=== PATIENT | female | born 1955 | race Caucasian/White ===

== ENCOUNTER → 2016-06-23 | Outpatient (CLI) | payer BC ==
[~2016-06-23] MED LIST: ALBUAER2 INH; ALLGUNK; AZIT250T PO; MXLUNK; PRED20TA PO
--- NOTE | 2016-06-27 15:57 | PULMONARY FUNCTION TEST ---
INTERPRETATION: This spirometry reveals mild obstruction with no change in airflow with the use of albuterol. Lung volumes are normal. The diffusion capacity when corrected for alveolar volume is slightly increased.
== END | disposition home or self-care (01) ==
LOC: C.RC 13:04
PROVIDERS: ATTEND Nurse Practitioner Family
DX: G47.33 Obstructive sleep apnea (adult) (pediatric) (principal); R05 Cough; T78.49XD Other allergy, subsequent encounter

== ENCOUNTER → 2016-09-27 | Outpatient (CLI) | payer BC ==
[~2016-09-27] VITALS: Ht 175.3 cm; Wt 87.0 kg
[2016-09-27 13:03] VITALS: BP 146/84; PULSE 72; Ht 175.3 cm; Wt 87.0 kg
== END | disposition home or self-care (01) ==
LOC: C.NEUR 12:25
PROVIDERS: ATTEND Internal Medicine Pulmonary Disease
DX: G47.19 Other hypersomnia (principal)

== ENCOUNTER → 2016-10-03 | Outpatient (CLI) | payer BC ==
--- NOTE | 2016-10-04 08:51 | PAP/PSG TECHNICIAN REPORT ---
[facility] Land Classifier Polysomnogram Report Study name: None Report date: 10/04/2016 Study date: 10/03/2016 Referring Physician: Josephine Smith CRNP Name: ROSAURA COLON Interpreting Physician: Cristóbal Álvarez M.D. Date of : 1955 Land Classifier: Teri Perez, PSGT. Sex: Female Age: 61 StudyType: PSG Weight: 191 lbs Height: 61 years, Height 5' 8" Neck Circum: BMI: 29.04 Medications: FEXOFENADINE HCI 180 MG, FLUTICASONE PROPIONATE 50 MCG/ACT, PROAIR HFA 108 MCG, PROTONIX 20MG, [place] WORT XTRA , VIT.D 2000 UNITS. Patient History 61 YR.OLD FEMALE IN ROOM 7, PRESENTS [facility] FOR A TITRATION SLEEP STUDY. PT. HAD A HOME SLEEP STUDY THAT SHOWED MODERATE BRYAN.PT. STATES THAT SHE WAKES GASPING AND HER WAKES HER AND TELLS HER TO BREATHE. Parameters Monitored NPSG: E1-M2, E2-M1, Fp1-M2, Fp2-M1, F3-M2, F4-M2, F4-M1, C3-M2, C4-M2, C4-M1, O1-M2, O2-M2, O2-M1, T3-M2, T4-M1, P3-M2, P4-M1, CHIN1, CHIN2, HR, EKG, Legs, PFLOW, SNOR, FLOW, CFLOW, Tidal Volume, THOR, ABDO, SpO2, PLTH, CPRESS, ETCO2 Wave, ETCO2, pH Sleep Architecture Sleep Stages Time at Lights Off 9:52:06 PM STAGES Time (min.) TST (%) Time at Lights On 5:31:06 AM Wake 165.5 -- Total Recording Time (TRT) 460.50 min. N1 28.0 10 Total Sleep Period (TSP) 425.0 min. N2 197.5 67 Total Sleep Time (TST) 293.5min. N3 7.0 2 Awake Time 167.0 min. REM 61.0 21 Wake after Sleep Onset 140.0 min. Sleep Efficiency (SE) 64 % Sleep Onset Latency (ZAFAR) 25.5 min. Number of Stage 1 Shifts None Awakenings 16 Stage Changes 52 Number of REM periods 2 REM 61.0 21 REM Latency 194.5 min. NREM 232.5 79 Body Position Analysis Supine Right Left Side Prone Vertical Total Sleep Time (min.) 175.8 37.2 190.5 227.74 0.0 0.0 Total Sleep Time (%) 22% 13% 65% 78 0% N/A% Total Sleep Time REM (min.) 0.0 0.0 61.0 None 0.0 0.0 Total Sleep Time NREM (min.) 65.8 37.2 129.5 None 0.0 0.0 Intermittent Wake (min.) 110.1 30.6 24.9 None 0.0 0.0 Total Sleep Period (%) 35% None None None None None Arousals Myoclonus (PLM) * Events Count Index Events Count Index Spontaneous 31 6 Events Awake (PLMW) 0 0.0 Respiratory 6 1.2 Events Asleep w/ Arousal (PLMA) 1 0.2 PLM 1 0 Events Asleep w/o Arousal (PLMS) 13 2.7 Snoring 5 1 Total Asleep 14 2.9 Total 43 9 Total 14 2 Respiratory Analysis * CA OA MA CH H RERA Total Count 0 0 1 0 22 0 23 Index 0.0 0.0 0.2 0 4.5 0 4.7 Mean Duration 0.0 0.0 0.0 0.00 18.5 0.0 17.7 Longest Duration 0.0 0.0 0.0 0.00 0.0 0.0 34.4 Respiratory Event Summary Total Supine ~Supine Right Left Prone REM NREM Apneas Count 1 0 1 0 1 N/A 1 0 Index 0.2 0 0 0.0 0.3 N/A 1 0 Hypopneas (4% Desat) Count 22 19 3 1 2 N/A 0 22 Index 4.5 17.3 1 1.6 0.6 N/A 0.0 5.7 Apneas & All Hypopneas Count 23 19 4 1 3 N/A 1 22 Index 4.7 17 1 2 1 N/A 1.0 5.7 Respiratory Events (Machining Manager+All Hyp+RERA) Count 23 19 4 1 3 N/A 1 22 Index 4.7 17 1 1.6 0.9 N/A 1.0 5.7 Respiratory Related Arousal Count 6 19 2 1 1 N/A 0 6 Index 1.2 4 1 2 0 N/A 0 2 Snoring Analysis Supine Right Left Prone REM NREM Total Snore duration 12.7 min Snores count 59 395 17 N/A 5 466 471 Snore mean duration 1.6 Sec Snores index 54 636 5 N/A 4.9 120.3 96.3 TST with snoring (%) 4.3% Desaturation Event Summary: Minimum %SpO2 Event Count Mean/Min/Max Duration(sec.) Desaturation Index % Time In Bed > 90 25 28.8 / 13.0 / 58.8 3.5 95.4 86 - 90 8 22.2 / 10.0 / 40.3 23.7 4.5 81 - 85 0 N/A 0.0 0.2 76 - 80 0 N/A 0.0 0.0 71 - 75 0 N/A 0.0 0.0 66 - 70 0 N/A 0.0 0.0 61 - 65 0 N/A 0.0 0.0 56 - 60 0 N/A 0.0 0.0 51 - 55 0 N/A 0.0 0.0 < 50 0 N/A 0.0 0.0 Total REM NREM Awake <50% 0.0 min. 0.0 min. 0.0 min. 0.0 min. 51 - 60% 0.0 min. 0.0 min. 0.0 min. 0.0 min. 61 - 70% 0.0 min. 0.0 min. 0.0 min. 0.0 min. 71 - 80% 0.0 min. 0.0 min. 0.0 min. 0.0 min. 81 - 90% 20.9 min. 0.0 min. 15.9 min. 5.0 min. 91 - 100% 429.4 min. 61.0 min. 216.5 min. 151.9 min. Average 94 95 94 94 Minimum SpO2 83 93 83 85 Desaturation Event Index 4.1 0.0 8.0 0.4 # Desat. Events below 89% 12 N/A 12 0 Time(%) with Saturation below 89% 2.3 0.0 2.1 0.2 Time(min.) with Saturation below 89% 10.6 0.0 9.5 1.0 Time (mins) REM (mins) NREM (mins) % of TST SpO2 Below 90% 19 N/A N19 4.2 SpO2 Below 88% 4 0 0 2 Heart Rate Analysis Min (bpm) Max (bpm) Average (bpm) Awake 53 102 66 NREM 52 97 58 REM 53 87 61 Overall 52 97 59 Supplemental O2 Values Minimum O2 level: None Value Start Time End Time Land Classifier Comments PAP Study: slept in the right, left,and supine positions. No cardiac arrhythmia or PLM's noted. No bruxism noted. CPAP was initiated at +4 CMH2O and up-titrated to an optimal level of +10 CMH2O, which nearly eliminated all respiratory events and snoring. A Medium Res Med F10 was used during titration Ms. Colon awoke to use the restroom one time during the night. Ms. Colon stated, it was rough at first. The final report will be interpreted and signed by a sleep physician. The completed physician report will then be placed in the patient medical record. Therapy Event: Therapy (cm H20) 4 6 8 10 Total Time at Pressure (min.) 26.1 160.3 127.8 144.5 TST at Pressure (min.) 0.8 66.7 119.5 106.5 # Periods 1 1 1 1 Sleep Onset (min.) 25.3 0.0 5.9 0.0 REM Onset (min.) N/A N/A 33.4 29.0 Sleep Efficiency % 3 41 93 73 Wakefulness (%) 96.8 58.4 6.5 26.3 Wakefulness (min.) 25.3 93.6 8.4 38.0 NREM 1 (%) 3.2 10.7 3.9 3.5 NREM 1 (min.) 0.8 17.2 5.0 5.0 NREM 2 (%) 0.0 30.9 65.7 44.3 NREM 2 (min.) 0.0 49.5 84.0 64.0 NREM 3 (%) 0.0 0.0 5.5 0.0 NREM 3 (min.) 0.0 0.0 7.0 0.0 REM (%) 0.0 0.0 18.4 25.9 REM (min.) 0.0 0.0 23.5 37.5 # Arousals 0 15 19 9 Arousal Index 0.0 13.5 9.5 5.1 # Snore 0 433 33 5 Snore Index 0.0 389.7 16.6 2.8 AHI 72.2 9.0 5.5 0.6 AHI Supine 72.2 16.8 19.6 7.3 AHI Non-Supine N/A 1.7 1.9 0.0 NREM AHI 72.2 9.0 6.3 0.9 REM AHI N/A N/A 2.6 0.0 RDI 72.2 9.0 5.5 0.6 # Obstructive 0 0 0 0 # Central Ap 0 0 0 0 # Mixed 0 0 1 0 # Hypopneas 1 10 10 1 RERAS 0 0 0 0 Total Respiratory Events 1 10 11 1 Time Below SpO2 89.00% (min.) 0.2 9.2 0.2 0.0 Mean NREM SpO2 (%) 90 92 94 95 Mean REM SpO2 (%) N/A N/A 94 96 Mean Sleep SpO2 (%) 90 92 94 95 Min NREM SpO2 (%) 87 83 88 92 Min REM SpO2 (%) N/A N/A 93 93 Position Supine (min.) 0.8 32.2 24.5 8.2 Position Non-supine (min.) 0.0 34.4 95.0 98.4 LM Index Sleep 0.0 3.6 3.0 2.3 LM Index NREM 0.0 3.6 3.1 0.9 LM Index REM N/A N/A 2.6 4.8 Mean Heart Rate (bpm) 64 61 58 58 Min Heart Rate (bpm) 62 56 52 53
--- NOTE | 2016-10-05 14:33 | POLYSOMNOGRAPH REPORT ---
CLINICAL DATA: 61-year-old female with BMI of 29 referred by LUCILLE Clark for a titration study. She had a home sleep study which showed moderate sleep apnea. She awakens gasping for breath and her awakens her and tells her to breathe. SLEEP ARCHITECTURE: Total sleep period was 425 minutes. Total sleep time was 293.5 minutes divided between 232.5 minutes of non-REM sleep and 61 minutes of REM sleep. Sleep onset latency was 25.5 minutes. REM latency was 194.5 minutes. Sleep efficiency was 64%. Wake after sleep onset was elevated at 140 minutes. Sleep consisted of stage N1 10%, N2 67%, N3 2%, REM 21%. AROUSAL DATA: 43 arousals were recorded for an index of 9 per hour. 31 were spontaneous. PLM DATA: 14 limb movements during sleep were noted for an index of 2.9 per hour with arousal index of 0.2 per hour. RESPIRATORY DATA: The AHI was 4.7. There was 1 mixed apneic episode and 22 hypopneic episodes. The mean duration of hypopnea was 18.5 seconds. OXIMETRY DATA: Mild nocturnal hypoxemia was seen. Oxygen vikki was 83% during non-REM sleep. The mean saturation was 94%. Time below 88% was 4 minutes. EKG: Heart rates ranged from 53 to 97 beats per minute. No arrhythmias were noted. TEASEL GIG OPERATOR'S COMMENTS: The patient slept in the right, left, and supine positions. She used a ResMed F10 mask. CPAP was titrated from 4 cm of water pressure up to 10 cm water pressure. At her final pressure setting, the patient slept for 106.5 minutes with an AHI of 0.6. IMPRESSION: Moderate sleep apnea corrected with CPAP 10 cm water pressure, medium ResMed F10 mask. RECOMMENDATIONS: The patient should be started on the above noted treatment regimen and seen back in followup within 90 days to document efficacy and compliance. POLOD
== END | disposition home or self-care (01) ==
LOC: C.NEUR 21:00
PROVIDERS: ATTEND Internal Medicine Pulmonary Disease
DX: G47.19 Other hypersomnia (principal)

== ENCOUNTER → 2016-10-07 | Outpatient (CLI) | payer BC ==
[~2016-10-07] VITALS: Ht 175.3 cm; Wt 84.5 kg
[2016-10-07 16:07] VITALS: BP 149/78; PULSE 88; BMI 27.5
[2016-10-07 16:15] VITALS: BP 149/78; PULSE 88; Ht 175.3 cm; Wt 84.5 kg
== END | disposition home or self-care (01) ==
LOC: C.NEUR 15:38
PROVIDERS: ATTEND Internal Medicine Pulmonary Disease
DX: G47.33 Obstructive sleep apnea (adult) (pediatric) (principal); G47.19 Other hypersomnia

== ENCOUNTER → 2017-01-09 | Outpatient (CLI) | payer BC ==
[~2017-01-09] VITALS: Ht 175.3 cm; Wt 85.4 kg
[2017-01-09 15:18] VITALS: BP 145/81; PULSE 81; Ht 175.3 cm; Wt 85.4 kg
== END | disposition home or self-care (01) ==
LOC: C.NEUR 14:41
PROVIDERS: ATTEND Physician Assistant
DX: G47.33 Obstructive sleep apnea (adult) (pediatric) (principal)

== ENCOUNTER → 2017-07-20 | Outpatient (CLI) | payer OTHER ==
[~2017-07-20] VITALS: Ht 175.3 cm; Wt 84.0 kg
[2017-07-20 15:25] VITALS: BP 133/77; PULSE 80; Ht 175.3 cm; Wt 84.0 kg
== END | disposition home or self-care (01) ==
LOC: C.NEUR 14:50
PROVIDERS: ATTEND Physician Assistant
DX: G47.33 Obstructive sleep apnea (adult) (pediatric) (principal)